=== PATIENT | female | born 1940 | race Caucasian/White ===

== ENCOUNTER 2017-10-17 15:35 | Emergency (ER) | payer OTHER ==
[2017-10-17 15:39] VITALS: BMI 23.3
[2017-10-17 15:40] VITALS: BP 155/73
--- NOTE | 2017-10-17 16:04 | DR.EXTPAIN ---
HPI - Time seen Time seen: 15:45 - PCP Primary Care Physician: Alona REYNOSO - Complaint/Symptoms Chief Complaint Doctor Comments: Patient states that she fell one week ago while at home and injured her right hip. The hip has continued to hurt her. 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 Patient reports that when injured her hip she sat on the soffa and awaken this AM. Chief Complaint:: PT. STATES SHE FELL ABOUT A WEEK AGO AND HAS HAD RIGHT HIP PAIN SINCE FALL. PT. ALSO STATES LAST NIGHT SHE PASSED OUT AND DID NOT WAKE UP UNTIL 2 AM. - Source History Provided: Patient - Mode of arrival Mode of Arrival: Wheelchair - Timing Onset of Chief Complaint: 10/12/17 PMH - PMH Past Medical History: Yes Past Medical History: Hypertension, Kidney Stones Past Medical History Comment: HIATAL HERNIA Past Surgical History: Yes Surgical History: Cholecystectomy, Hysterectomy, Ortho Surgery, Lithotripsy Past Surgical History Comment: RIGHT HIP REPLACEMENT - Family History History of Family Medical Conditions: Yes Family Medical History: Cancer - Social History Does patient currently use any type of tobacco product: No Have you used tobacco products in the last 12 months: No Type of Tobacco Use: None Does any household member use tobacco: No Alcohol Use: None Do you use any recreational Drugs:: No Lives With: Alone Lives Where: Home - infectious screening In the last 2 months have you had wt loss of >10#?: NO Have you had fever, night sweats or hemotysis?: No Have you traveled outside the country in the last 6 months?: No Isolation: Standard ROS - Review of Systems Constitutional: No Symptoms Reported Eyes: No Symptoms Reported ENTM: No Symptoms Reported Respiratoy: No Symptoms Reported Cardiovascular: No Symptoms Reported Gastrointestinal/Abdominal: No Symptoms Reported Genitourinary: No Symptoms Reported Neurological: No Symptoms Reported Musculoskeletal: Hip Integumentary: No Symptoms Reported Hematologic/Lymphatic: No Symptoms Reported Endocrine: No Symptoms Reported Psychiatric: No Symptoms Reported All Other Systems: Reviewed and Negative PE - Vital Signs Vitals: Temperature 98.1 F Pulse Rate 64 Respiratory Rate 16 Blood Pressure 155/73 O2 Sat by Pulse Oximetry 100 - General Limitations: No Limitations General Appearance: Alert, In No Apparent Distress - Head Head Exam: Normal Inspection, Atraumatic - Eyes Eye exam: Normal Appearance, PERRL, EOMI - ENT ENT Exam: Normal Exam - Neck Neck Exam: Normal Inspection, Full ROM - Chest Chest Inspection: Normal Inspection - Respiratory Respiratory Exam: Normal Lung Sounds Bilat Respiratory Exam: Bilateral Clear to Auscultation - Cardiovascular Cardiovascular Exam: Regular Rate, Normal Rhythm - Abdominal Exam Abdominal Exam: Normal Inspection, Normal Bowel Sounds Abdominal Tenderness: negative: RUQ, RLQ, LUQ, LLQ, Epigastrium, Suprapubic, Diffuse, Mild, Moderate, Severe, Other - Extremities Extremities Exam: Normal Inspection, Full ROM - Upper Extremities Shoulder Exam: Normal Inspection, Full ROM Arm Exam: Normal Inspection, Full ROM Elbow Exam: Normal Inspection Forearm Exam: Normal Inspection Hand Exam: Normal Inspection, Full ROM Neuromotor Exam: Normal Exam Neurosensory Exam: Normal Exam Hand Tendon Exam: Flexor Digitorium Profundus (Location) Upper Ext. Vascular Exam: Capillary Refill - Lower Extremities Hip/Pelvis Exam: Normal Inspection, Tenderness (right hip tenderness to palpation) Upper Leg Exam: Normal Inspection Knee Exam: Normal Inspection Lower Leg Exam: Normal Inspection, Full ROM Ankle Exam: Normal Inspection Foot/Toe Exam: Normal Inspection Neurovascular/Tendon Exam: Normal Capillary Refill - Back Back Exam: Normal Inspection Course - Education/Counseling Educated On: Diagnosis, Prognosis, Needs for Follow Up (Dr Hinton reviewed the film no acute fracture. follow up in office as needed) ROR - XRAY XRAY Interpreted by: Radiologist (Right Hip: A right hip prosthesis is present, the components of which are anatomically related. There is no evidence for loosening, fracture or dislocation. Nonacute fragmentation is noted at the greater trochanter. 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 Contour deformity involves the left pubis. Contour deformity of the left pubis consistent with fracture, possible old.) - Diagnosis Discharge Problem: Contusion of right hip Qualifiers: Encounter type: initial encounter Qualified Code(s): S70.01XA - Contusion of right hip, initial encounter - Discharge Plan Condition: Stable - Follow ups/Referrals Follow ups/Referrals: SEAN REYNOSO [Primary Care Provider] - 3 days - Instructions
--- NOTE | 2017-10-17 16:12 | RAD ---
Examination: Right hip, three views History: Fell 1 week ago Findings: A right hip prosthesis is present, the components of which are anatomically related. There is no evidence for loosening, fracture or dislocation. Nonacute fragmentation is noted at the greater trochanter. 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 Contour deformity involves the left pubis. Impression: 1. Status post right IVON without acute abnormality noted. 2. Osteoarthritis left hip. 3. Contour deformity of left pubis consistent with fracture, possibly old. Correlate clinically. Reported By:
[2017-10-17 16:43] LABS: BASOPHILS # (AUTO) 0.1 X10^3/uL (0.0-0.1); BASOPHILS % (AUTO) 0.9 % (0.2-1.0); EOSINOPHILS # (AUTO) 0.1 x10^3/uL (0.0-0.2); LYMPHOCYTES # (AUTO) 3.1 X10^3/uL (1.3-2.9); LYMPHOCYTES % (AUTO) 40.2 % (21.0-51.0); MEAN CORPUSCULAR HEMOGLOBIN 32.8 pg (27.0-34.0); MEAN CORPUSCULAR HGB CONC 34.3 g/dL (33.0-35.0); MEAN CORPUSCULAR VOLUME 95.5 fL (80.0-100.0); MEAN PLATELET VOLUME 7.5 fL (7.4-11.0); MONOCYTES # (AUTO) 0.6 x10^3/uL (0.3-0.8); MONOCYTES % (AUTO) 8.1 % (0.0-13.0); NEUTROPHILS # (AUTO) 3.8 x10^3/uL (2.2-4.8); NEUTROPHILS % (AUTO) 49.8 % (42.0-75.0); PLATELET COUNT 417 X10^3/uL (150.0-450.0); RED BLOOD COUNT 3.35 X10^6/uL (3.5-5.4); RED CELL DISTRIBUTION WIDTH 12.2 % (11.6-16.5); WHITE BLOOD COUNT 7.6 X10^3/uL (3.6-10.0)
[2017-10-17 16:53] LABS: ALANINE AMINOTRANSFERASE 21 Units/L (12-78); ALBUMIN 3.7 g/dL (3.4-5.0); ALKALINE PHOSPHATASE 89 Units/L (46-116); ASPARTATE AMINO TRANSFERASE 15 Units/L (15-37); BLOOD UREA NITROGEN 22 mg/dL (7-18); CARBON DIOXIDE 25.3 mmol/L (21-32); CHLORIDE 102 mmol/L (98-107); CREATININE 1.06 mg/dL (0.55-1.02); SODIUM 138 mmol/L (136-145); TOTAL PROTEIN 8.3 g/dL (6.4-8.2); eGFR BLACK RACES > 60 (>60); eGFR NON BLACK RACES 53 (>60)
== END 2017-10-17 17:24 | disposition home or self-care (01) ==
LOC: ER 15:45
DX: S70.01XA Contusion of right hip, initial encounter (principal); W19.XXXA Unspecified fall, initial encounter; Y92.9 Unspecified place or not applicable
CPT/HCPCS: 36415; 73501; 80053; 85025; 99282